=== PATIENT | female | born 1995 | race Two or more races ===

== ENCOUNTER 2019-12-12 11:33 | Outpatient (CLI) | payer OTHER ==
--- NOTE | 2019-12-12 12:15 | SLEEP CARE CONSULTATION ---
Information from patient questionnaire entered by Latesha Haynes. I have reviewed and concur with the information entered by Latesha Haynes. This document represents the service I personally performed and the decisions made by me, Noble Ryder MD, [facility]. History of Present Illness Service Date and Time: 12/12/2019 1133 Reason for Visit: New patient Chief Complaint: reports: Snoring, Observed pauses in breathing, Fatigue, Frequent awakenings at night, Other (sleep apnea) Duration of Symptoms: my whole life Usual bedtime: 10-11 pm Time it takes to fall asleep: i fall asleep quick Snores at night: Yes Observed to quit breathing while asleep: Yes Sleeps alone due to snoring: Yes Number of times waking at night: 2-5 Reasons for waking at night: reports: Other (none, i just wake up) Toss, Turn, or Twitch while sleeping: Yes Recalls having dreams: Yes Usually gets out of bed at: 8 am Feels refreshed in the morning: No Morning headache: No Sleepy or fatigued during the day: Yes Ever fallen asleep while driving: No Takes day naps: Yes Dreams during day naps: Yes Prior sleep studies: No Additional HPI information: Ms. Castillo is planning to have a bariatric surgery and is here to have a sleep study. She does snore loudly to the point that her has to sleep in a separate bedroom. He also has seen her quit breathing at night. She has woken up because of her own snore. She wakes up 4 times a night on the average. During the day she feels sleepy and tired. Her ENT employer in [place] looked at her throat and said it was narrow and that she probably has REGINE. She has an aunt and a cousin who use CPAPs. 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 Patient is and lives in [place]. Have you smoked in the past 12 months: No Cigarettes per day (20/pack): 5 Years of smokin Quit date: 2016 Smoking Pack Years: 1.0 Alcohol use: Yes Alcohol amount and frequency: a couple drinks socially Caffeine use: Yes Caffeine amount and frequency: maybe tea or coffee sometimes Family History Family history of sleep disordered breathing: Yes Family Hx Sleep Apnea: Other: Sleep apnea - Treated (aunt, cousin) Allergies and Home Medications Drug allergies reviewed: Yes Home medication list reviewed: Yes (duloxetine) Review of Systems Weight gain over past 5 years: 60 Weight loss over past 5 years: 40 Cardiovascular: reports: palpitations Respiratory: denies: shortness of breath, wheeze, sputum production, chronic cough, other Gastrointestinal: reports: heartburn Urinary: denies: incontinence, frequency, urgency, impotence, other Neurological: reports: headaches, gait or balance problems Psychiatric: reports: anxiety Ear/Nose/Throat: reports: wisdom teeth removed Endocrine: reports: thyroid disease, sluggishness, too hot or cold, excessive thirst, increased appetite Musculoskeletal: reports: neck pain, other (TMJ) Immunologic: denies: sneezing, rash, itching, allergies to food or environment, other Physical Exam Vital signs obtained and entered by: Exam is deferred to comply with COVID-19 precautions. Impression and Plan IMPRESSION: 1. Obstructive Sleep Apnea-Hypopnea Syndrome, as suggested by history of loud and irregular snoring, observed cessation of breath while asleep, frequent awakenings during the night, unrefreshed sleep, cognitive impairment, and daytime hypersomnolence. Narrow oropharynx and obesity are common predisposing factors for obstructive sleep apnea-hypopnea syndrome. Pathophysiology of sleep-disordered breathing was discussed. I recommend proceeding to polysomnography to confirm the diagnosis and to assess severity. If she has significant sleep disordered breathing, a manual CPAP titration study will also be performed to find the optimal treatment pressure. I informed the patient of what the sleep studies involve and after some discussion, she agreed to proceed. Plan: 1. Schedule an in-lab polysomnography + manual CPAP titration study. 2. Avoid long distance driving or when feeling sleepy. 3. Avoid alcohol, sedative and muscle relaxant around bedtime. 4. Attempt to lose weight. 5. Return in 1 to 2 weeks after the study to discuss results and initiate therapy. Visit Type: In Office Time Spent with Patient (minutes): 15 Provider Statement: I spent 100% of the Face to Face Visit with the patient with greater than 50% spent counseling the patient and coordination of care.
== END 2019-12-12 11:34 | disposition home or self-care (01) ==
LOC: SC 11:33
PROVIDERS: ATTEND Internal Medicine Pulmonary Disease
DX: R06.83 Snoring (principal); R06.81 Apnea, not elsewhere classified; G47.10 Hypersomnia, unspecified; G47.8 Other sleep disorders; E66.9 Obesity, unspecified
CPT/HCPCS: 99203; 99212

== ENCOUNTER 2020-01-05 20:28 | Outpatient (CLI) | payer OTHER | END 2020-01-05 20:29 | disposition home or self-care (01) | LOC: SC 20:28 | PROVIDERS: ATTEND Internal Medicine Pulmonary Disease | DX: I47.1 Supraventricular tachycardia (principal); R06.83 Snoring; G47.10 Hypersomnia, unspecified; R06.81 Apnea, not elsewhere classified; E66.9 Obesity, unspecified | CPT/HCPCS: 95810 ==

== ENCOUNTER 2020-02-02 09:08 | Outpatient (CLI) | payer OTHER ==
--- NOTE | 2020-02-02 09:52 | SLEEP CARE CONSULTATION ---
Information from patient questionnaire entered by Latesha Haynes. I have reviewed and concur with the information entered by Latesha Haynes. This document represents the service I personally performed and the decisions made by , Olga Meza ARNP. History of Present Illness Service Date and Time: 02/02/2020907 Initial [place] Sleepiness Scale score: 15 (in 2019) Additional HPI information: SERGIO GONZALEZ returns for follow up and results of the recently performed polysomnography. Patient is trying to gain clearance for bariatric surgery and was thus sent here by her PCP to evaluate her for REGINE due to snoring, witness apnea, excessive daytime sleepiness and obesity. The patient was informed of the following findings: Patient does not have significant sleep disordered breathing but was found to have an occasional premature atrial contraction and had an 8-beat run of supraventricular tachycardia. She has already touched base with her PCP who has referred her to [facility] cardiology for a 30 day holter study. I explained the pathophysiology behind obstructive sleep apnea. Patient does not have sleep apnea and was advised how weight gain could increase the risk of developing sleep apnea in the future. I encouraged the patient to lose weight and she is seeking to obtain bariatric surgery to help her lose weight. Patient has light to moderate snoring. Snoring can be reduced by weight loss. Weight loss is best achieved with diet consult. Patient instructed to contact PCP for referral. Snoring can also be treated with an oral appliance from a dentist. Advised to check insurance coverage. In addition, an ENT evaluation can be do to see if other treatment is indicated. Patient counseled not drink alcohol less than 4 hours before bedtime as it can increase snoring and apnea. Patient was cautioned about risks of drowsy driving until sleepiness symptoms resolve. Sleep Study - Results Type of Sleep Study: Polysomnography Polysomnography/Home Sleep Study results: IMPRESSION: The quality of the study is good. The patient had normal sleep efficiency. The sleep architecture was normal as well. Respiratory monitoring showed no significant sleep disordered breathing (AHI = 2.1) or hypoxia (shorty oxygen saturation of 90%). The few respiratory events occurred mainly during supine REM sleep (supine AHI = 3.7; non-supine = 0.00). Snore was light to moderate in intensity. There was no significant periodic leg movement of sleep. Cardiac rhythm was normal sinus rhythm without significant arrhythmia with occasional premature atrial contractions and an 8-beat run of supraventricular tachycardia. No abnormal behavior (parasomnia) observed during the night. CONCLUSIONS and RECOMMENDATIONS: 1. Supraventricular tachycardia (ICD-10 I47.1). Recommend further cardiac monitoring and treatment as appropriate. Allergies and Home Medications Drug allergies reviewed: Yes (Sulfa) Home medication list reviewed: Yes (no medications) Review of Systems Review of systems same as previous: Yes (no changes) Physical Exam Heart Rate: 66 O2 Saturation: 99 Height: 5 ft 7 in Weight: 218 lb 9.6 oz Body Mass Index: 34.2 BMI Classification: Obese Impression and Plan 1. Primary snore. Snoring but no significant sleep disordered breathing. Patient advised that often weight loss will reduce snoring as well as apnea risk. An oral appliance can also be used for snoring. This would require a dental consultation. Patient cautioned not to use other online appliances as can cause bite issues. A list of accredited dentists in area and one local dentist who makes oral appliances given. Patient is advised to check if insurance will cover. An ENT consult can also be helpful to determine if any other treatment is an option. 2. Supraventricular tachycardia. Patient had an 8-beat run of supraventricular tachycardia during the PST. She has been referred by her PCP for a 30 day holter study of her heart rhythm. She was advised to continue with cardiology referral and study to have this evaluated. * Continue follow up with cardiology and the holter monitoring test * Continue efforts to lose weight * Avoid alcohol consumption near bedtime * The patient is cautioned about driving until sleepiness is completely resolved. * Return as needed for follow up with worsening of sleep symptoms. Visit Type: In Office Time Spent with Patient (minutes): 20 Provider Statement: I spent 100% of the Face to Face Visit with the patient with greater than 50% spent counseling the patient and coordination of care.
== END 2020-02-02 09:09 | disposition home or self-care (01) ==
LOC: SC 09:08
PROVIDERS: ATTEND Nurse Practitioner Family
DX: R06.83 Snoring (principal); I47.1 Supraventricular tachycardia; E66.9 Obesity, unspecified; Z68.34 Body mass index [BMI] 34.0-34.9, adult
CPT/HCPCS: 99212; 99213

== ENCOUNTER 2020-09-16 11:56 | Outpatient (CLI) | payer OTHER ==
[2020-09-16 12:58] VITALS: BP 118/87
[2020-09-16] MEDS ORDERED: RHO(D) IMMUNE GLOBULIN 300 MCG SYRINGE IM ONE (13:14)
[2020-09-16 13:33] LABS: BASOPHILS % (AUTO) 0.2 %; EOSINOPHILS # (AUTO) 0.1 10^3/uL (0.0-0.7); EOSINOPHILS % (AUTO) 0.6 %; HGB - HEMOGLOBIN 11.3 g/dL (12.0-16.0); LYMPHOCYTES # (AUTO) 1.5 10^3/uL (1.5-3.5); LYMPHOCYTES % (AUTO) 14.6 %; MEAN CORPUSCULAR HEMOGLOBIN 29.7 pg (27.0-31.0); MEAN CORPUSCULAR HGB CONC 33.2 g/dL (32.0-36.0); MEAN CORPUSCULAR VOLUME 89.5 fL (81.0-99.0); MEAN PLATELET VOLUME 9.1 fL (7.9-10.8); MONOCYTES # (AUTO) 0.6 10^3/uL (0.0-1.0); MONOCYTES % (AUTO) 6.1 %; NEUTROPHILS # (AUTO) 8.1 10^3/uL (1.5-6.6); NEUTROPHILS % (AUTO) 77.5 %; PLT - PLATELET COUNT 326 10^3/uL (130-450); RED CELL DISTRIBUTION WIDTH 13.9 % (12.0-15.0); WHITE BLOOD COUNT 10.4 x10^3/uL (4.8-10.8)
[2020-09-16] MEDS ORDERED: LACTATED RINGERS 1,000 ML IV ONE ×2 (14:56→15:00)
[2020-09-16 19:34] LABS: ESTIMATED AVERAGE GLUCOSE 94 mg/dL (70-100); HEMOGLOBIN A1c% 4.9 % (4.27-6.07)
--- NOTE | 2020-09-18 16:51 | PROVIDER PROGRESS NOTE ---
- HPI Chief Complaint: Other Current : Patient is a 24 yo at 32w3d ega here with abdominal pain and tachycardia. Patient has had scant care this . She believes she has been seen twice to date. Pans to transfer from [facility]. She was recently seen at [facility] but did not like the provider and did not follow-up. [facility] and reported that she had been having emesis, diarrhea, and cramping all weekend and now is tachycardic. She was told to present to triage for evaluation. Upon presentation, she reports she has not had any episodes of diarrhea or emesis this am. She remains tachycardic. No SOB, CP, or dizziness. Endorses FM. She is Rh negative and has not had Rhogam. She was under the impression that it was only needed for the first . She thinks her husbadn is O negative and her children are as well but there is no documentation readily available. She has not yet completed her glucola. Outside records are not available. PMH: none PSH:removal of keratinizing cyst OBHX: x2 PNL: O neg, Rub imm Hep C Ab neg, HepBsAg neg, RPR neg, HIV neg IS wnl CF carrier neg Current EDU 11/08/20 Gestation 32 Weeks and 3 Days 3 Para 2 Vital Signs Temperature 97.2 F L 09/16/20 12:10 Heart Rate 115 H 09/16/20 12:10 Respiratory Rate 18 09/16/20 12:10 Blood Pressure 118/87 H 09/16/20 12:10 O2 Saturation 98 09/16/20 12:10 Temperature 97.2 F L 09/16/20 12:10 Heart Rate 115 H 09/16/20 12:10 Respiratory Rate 18 09/16/20 12:10 Blood Pressure 118/87 H 09/16/20 12:10 O2 Saturation 98 09/16/20 12:10 - Exam GEN: NAD HEENT: NCAT CV; tachycardia RESP: CTAB, normal effort ABD: gravid, S&NT/ND EXT: WWP NEURO: A&O, normal gait and coordination PSYCH: bright and reactive affect EFM 135 mod nikolas 15x15 accles no decels TOCO: quiet - Procedures OB Procedure Performed: NST Diagnosis/Indication for NST: Other (abdominal pain) NST Procedure: EFM 135 mod nikolas 15x15 accles no decels TOCO: quiet Service Date of procedure: 09/16/20 - Plan Plan: 24 yo at 32+3 wga here for abdominal cramping, diarrhea, emesis, tachycardia. No longer having GI symptoms No contractions on monitor FWB: Cat I tracing TACHYCARDIA: TSH, glucose, CBC drawn -Given 1L fluid bolus, given recency of GI symptoms, and tachycardia resolved PNL: scant care -Had extensive discussion regarding Rh isoalloimmunization -Ab screen drawn and was negative -Rhogam given -Glucola drawn, wnl Patient symptoms resolved tachycardia resolved with IV fluids Patient will follow up in clinic CBC showed anemia; rx for iron and vit C sent to [facility] pharmacy Patient was examined and mitochondrial disorders counselor was given face to face by provider DX: IUP at 32+3 Abdominal cramping GI distress Tachycardia Rh negative in
== END 2020-09-16 16:20 | disposition home or self-care (01) ==
LOC: WFO 11:56 → FBP 12:01 → WFO 16:20
PROVIDERS: ATTEND Obstetrics & Gynecology
DX: O99.891 Other specified diseases and conditions complicating pregnancy (principal); R00.0 Tachycardia, unspecified; R10.9 Unspecified abdominal pain; R19.7 Diarrhea, unspecified; O21.2 Late vomiting of pregnancy; O26.893 Other specified pregnancy related conditions, third trimester; Z67.41 Type O blood, Rh negative; O09.33 Supervision of pregnancy with insufficient antenatal care, third trimester; Z3A.32 32 weeks gestation of pregnancy
CPT/HCPCS: 36415; 82950; 83036; 84443; 85025; 86850; 96360; 96372; 99213; J7120

== ENCOUNTER 2020-10-17 08:00 | Outpatient (CLI) | payer OTHER | END 2020-10-17 23:59 | disposition home or self-care (01) | LOC: LAB.R 08:00 | PROVIDERS: ATTEND Obstetrics & Gynecology | DX: Z36.85 Encounter for antenatal screening for Streptococcus B (principal) | CPT/HCPCS: 87797 ==

== ENCOUNTER 2020-11-03 23:52 | Outpatient (CLI) | payer OTHER ==
[2020-11-04 00:22] VITALS: BP 117/73
--- NOTE | 2020-11-04 07:29 | PROCEDURE REPORT ---
- HPI Diagnosis/Indication for NST: Other (labor check--contractions at term) Current EDU 11/08/20 Gestation 39 Weeks and 3 Days 3 Para 2 Vital Signs Temperature 98.1 F 11/04/20 00:10 Heart Rate 81 11/04/20 00:10 Respiratory Rate 16 11/04/20 00:10 Blood Pressure 117/73 11/04/20 00:10 O2 Saturation 100 11/04/20 00:10 Temperature 98.1 F 11/04/20 00:10 Heart Rate 81 11/04/20 00:10 Respiratory Rate 16 11/04/20 00:10 Blood Pressure 117/73 11/04/20 00:10 O2 Saturation 100 11/04/20 00:10 - NST Procedure NST Procedure Start Date 11/04/20 Start Time 00:03 Stop Time 00:26 Vibroacoustic Stimulation Used No Patient States Movement Yes - Results and Plan Findings/Impression: Baseline: BPM 135 Variability: Moderate Accelerations: Present Decelerations: Absent Trends in FHR over time: no changes [place] contractions in 10 minutes: 3 Impression: reactive Category 1 NST Labor check, unchange SVE at 1.5cm
== END 2020-11-04 01:20 | disposition home or self-care (01) ==
LOC: WFO 23:52 → FBP 23:53 → WFO 11-04 01:20
PROVIDERS: ATTEND Obstetrics & Gynecology
DX: Z34.83 Encounter for supervision of other normal pregnancy, third trimester (principal); Z3A.39 39 weeks gestation of pregnancy
CPT/HCPCS: 59025; 99211; 99213

== ENCOUNTER 2020-11-04 04:01 | Inpatient (IN) | payer OTHER ==
[2020-11-04] MEDS ORDERED: TRANEXAMIC ACID IN NACL 1,000 MG/100 ML BAG IV PRN (04:24)
[2020-11-04] MEDS ORDERED: SODIUM CHLORIDE FLUSH 0.9% 10 ML SYRINGE IVP PRN (04:24)
[2020-11-04] MEDS ORDERED: miSOPROStoL 200 MCG TABLET BC PRN (04:24)
[2020-11-04] MEDS ORDERED: fentaNYL 100 MCG/2 ML VIAL IVP PRN (04:24)
[2020-11-04] MEDS ORDERED: OXYTOCIN 10 UNIT/ML VIAL IM PRN (04:24)
[2020-11-04] MEDS ORDERED: CARBOPROST TROMETHAMINE 250 MCG/ML AMP IM PRN (04:24)
[2020-11-04] MEDS ORDERED: LIDOCAINE-MPF 1% 30 ML VIAL ID PRN (04:24)
[2020-11-04] MEDS ORDERED: ONDANSETRON 4 MG/2 ML VIAL IVP PRN (04:24)
[2020-11-04] MEDS ORDERED: OXYTOCIN/SODIUM CHLORIDE 500 ML IV PRN (04:24)
[2020-11-04] MEDS ORDERED: METHYLERGONOVINE 0.2 MG/ML VIAL IM PRN (04:24)
[2020-11-04 05:43] LABS: BASOPHILS % (AUTO) 0.2 %; EOSINOPHILS # (AUTO) 0.1 10^3/uL (0.0-0.7); EOSINOPHILS % (AUTO) 1.1 %; HCT - HEMATOCRIT 31.4 % (37.0-47.0); HGB - HEMOGLOBIN 10.7 g/dL (12.0-16.0); LYMPHOCYTES # (AUTO) 1.7 10^3/uL (1.5-3.5); LYMPHOCYTES % (AUTO) 16.3 %; MEAN CORPUSCULAR HEMOGLOBIN 29.4 pg (27.0-31.0); MEAN CORPUSCULAR HGB CONC 34.1 g/dL (32.0-36.0); MEAN CORPUSCULAR VOLUME 86.3 fL (81.0-99.0); MEAN PLATELET VOLUME 9.8 fL (7.9-10.8); MONOCYTES # (AUTO) 0.9 10^3/uL (0.0-1.0); MONOCYTES % (AUTO) 8.1 %; NEUTROPHILS # (AUTO) 7.8 10^3/uL (1.5-6.6); NEUTROPHILS % (AUTO) 73.5 %; PLT - PLATELET COUNT 319 10^3/uL (130-450); RED BLOOD COUNT 3.64 10^6/uL (4.20-5.40); RED CELL DISTRIBUTION WIDTH 13.7 % (12.0-15.0); WHITE BLOOD COUNT 10.6 x10^3/uL (4.8-10.8)
--- NOTE | 2020-11-04 07:25 | HISTORY & PHYSICAL EXAMINATION ---
History of Present Illness - History of Present Illness HPI Comment/Other: CC: broken bag of water HPI: Srom clear, voluminous at 03:30. Was having painful contractions last night after taking pato oil, came in for a labor check around midnight, was 1.5cm dilated at that time. No SVE change here and so she was sent home. No VB. ROS: no fevers PMH: hx of peptic ulcer. overweight. PSH: neg Allergies: sulfa --> hives Meds: PNV which she forgets often. Ulman oil. SH: no t/e/d OB: . 9#15oz babies x2, didn't have diabetes with either. Datin/21 by LMP c/w 23w US per record Anatomy: reported as normal on record but results not visible. Genetics: normal integrated Labs: 1h 117, GBS neg. No hx of HSV. O neg, Ab neg. RI, . Vax: s/p Tdap, s/p Rhogam O: AVSS Sleeping comfortably, NAD EFW alejandra 9+# Hct 31 Cat 1 NST [place] neg A/P: 24yo at 39w3d by LMP c/w 23w US (patient also had integrated screening which further supports gestational age) with SROM clear at term, SROM 4h ago. Had UC last night and came in for labor check and so I was anticipating that the contractions would resume after SROM but they did not. Will start pitocin now. --Macrosomia by alejandra, no recent growth US as the patient has said that regardless of the size she would not consider a primary for projected size to reduce risk of morbidity or mortality...as she has already successfully birthed to macrosomic babies. --Anemia: starting Hct 31, has not been taking her PNV faithfully --Fetus: normal anatomy and genetic testing. Vertex with category 1 tracing --Labor: GBS neg, augment with pitocin, anticipate , pt wants to proceed unm edicated. Increased risk for PPH due to macrosomia. --: will need rhogam eval. RI, , s/p Tdap. No hx of mood disorders. Meds/Allgy - Allergies Allergies/Adverse Reactions: Allergies Allergy/AdvReac Type Severity Reaction Status Date / Time Sulfa (Sulfonamide Allergy Hives Verified 09/16/20 14:34 Antibiotics) Exam - Vital Signs Vital Signs: Vital Signs x48h Temp Pulse Resp BP 11/04/20 04:29 98.1 F 88 16 116/78 Conclusion/Plan - Lab Results Fish Bones: 11/04/20 05:33
--- NOTE | 2020-11-04 08:28 | PROVIDER PROGRESS NOTE ---
Subjective - Prog Note Date Prog Note Date: 11/04/20 Prog Note Time: 08:26 - Subjective Subjective: 24 yo at 39+3 here with SROM Not feeling contractions. Starting IV SVE /-3/posterior Hx of fast labors Hx of LGA infants LABOR: augment with pitocin FWB: Cat I tracing, GBS neg, suspected macrosomia Rh neg PAIN: Wants to avoid epidural and fentanyl OK with nitrous MOD: Anticipate Objective - Vital Signs/Intake & Output Vital Signs: Vital Signs x48h Temp Pulse Resp BP 11/04/20 04:29 98.1 F 88 16 116/78 - Lab Results Fish Bones: 11/04/20 05:33 Other Labs: Lab Results x24hrs 11/04/20 Range/Units 05:33 WBC 10.6 (4.8-10.8) x10^3/uL RBC 3.64 L (4.20-5.40) 10^6/uL Hgb 10.7 L (12.0-16.0) g/dL Hct 31.4 L (37.0-47.0) % MCV 86.3 (81.0-99.0) fL MCH 29.4 (27.0-31.0) pg MCHC 34.1 (32.0-36.0) g/dL RDW 13.7 (12.0-15.0) % Plt Count 319 (130-450) 10^3/uL MPV 9.8 (7.9-10.8) fL Neut # (Auto) 7.8 H (1.5-6.6) 10^3/uL Lymph # (Auto) 1.7 (1.5-3.5) 10^3/uL [place] # (Auto) 0.9 (0.0-1.0) 10^3/uL Eos # (Auto) 0.1 (0.0-0.7) 10^3/uL Baso # (Auto) 0.0 (0.0-0.1) 10^3/uL Absolute Nucleated RBC 0.00 x10^3/uL Nucleated RBC % 0.0 /100WBC
[2020-11-04] MEDS ORDERED: SODIUM CHLORIDE FLUSH 0.9% 10 ML SYRINGE IVP SCH (09:00)
[2020-11-04] MEDS: LACTATED RINGERS 1,000 ML IV SCH ×2 (09:13→15:35)
[2020-11-04] MEDS: OXYTOCIN/SODIUM CHLORIDE 500 ML IV SCH ×2 (09:33→16:05)
[2020-11-04] MEDS ORDERED: CALCIUM CARBONATE CHEW 500 MG TABLET PO SCH (14:00)
[2020-11-04] MEDS ORDERED: DOCUSATE SODIUM 100 MG CAPSULE PO PRN (15:46)
[2020-11-04] MEDS ORDERED: SIMETHICONE CHEW 80 MG TABLET PO PRN (15:46)
[2020-11-04] MEDS ORDERED: ONDANSETRON ODT 4 MG TABLET TL PRN (15:46)
--- NOTE | 2020-11-04 15:49 | DELIVERY NOTE ---
Delivery Note - Labor Labor: positive: Augmented by oxytocin - Delivery Method Delivery Method: positive: Spontaneous vaginal delivery - Presentation Presentation: positive: Vertex, ROP - right occiput posterior - Nuchal Cord Nuchal Cord: positive: Present, Reduced - Amniotic Fluid Description Amniotic Fluid Description: positive: Clear - Episiotomy Type Episiotomy Type: positive: None - Laceration Laceration: positive: None - [place] : positive: Placed in direct skin contact with mother, Stimulated, Warmed, [place] used [place] sex: positive: Male - Cord Cord: positive: 3 vessels - Placenta Placenta: positive: Intact, Spontaneous - Estimated Blood Loss Estimated Blood Loss (in cc): 150 - Post Delivery Events Post Delivery Events: positive: No post delivery events - Delivery Comments (Free Text/Narrative) Delivery Comments (Free Text/Narrative): STAGE I: Patient is a 24 yo at 39+3 wga who presented with SROM, voluminous at 03:30. Was having painful contractions last night after taking castor oil, came in for a labor check around midnight, was 1.5cm dilated at that time. No SVE change here and so she was sent home. Presented at 6:40 am s/p SROM. Initial SVE was 4/70/-2/posterior/med. Did not regular contractions and was augmented with pitocin. Max dose of pitocin 6 mU/min. No epidural. Some nitrous oxide for pain management. GBS negative. She was complete at 15:24. Cat I monitoring throughout Stage I labor. STAGE II: Patient pushed well for 5 minutes to deliver a viable male infant from vertex, ROP presentation. Shoulders delivered easily with left arm anterior. Nuchal cord x1, reduced over infant head. Delivered to maternal chest. Cord was clamped x2 and cut after pulsations had ceased. Apgars 8/9 with weight pending. STAGE III: Placenta delivered spontaneously at 15:37. It was examined and found to be complete. Perineum was examined and was without laceration. EBL 150 cc. Procedure was well tolerated and without complication.
[2020-11-04] MEDS ORDERED: LACTATED RINGERS 1,000 ML IV SCH (16:00)
[2020-11-04] MEDS: IBUPROFEN 600 MG TABLET PO PRN ×2 (16:12→21:54)
[2020-11-04] MEDS: ACETAMINOPHEN 500 MG TABLET PO PRN (16:12)
[2020-11-05] MEDS: ACETAMINOPHEN 500 MG TABLET PO PRN ×3 (02:36→17:11)
[2020-11-05] MEDS: IBUPROFEN 600 MG TABLET PO PRN ×3 (04:38→17:11)
--- NOTE | 2020-11-05 08:58 | PROVIDER PROGRESS NOTE ---
Subjective - Prog Note Date Prog Note Date: 11/05/20 Prog Note Time: 08:56 - Subjective Subjective: Patient is doing well. Up and out of bed. Tolerating po. BF going well. Strong after pains this am, needing a single dose of oxycodone. Bleeding is wnl. [place] BTL Objective - Vital Signs/Intake & Output Reviewed Vital Signs: Yes Vital Signs: Vital Signs x48h Temp Pulse Resp BP Pulse Ox 11/05/20 07:30 97.8 F 69 18 117/67 97 11/05/20 04:45 98.2 F 68 16 110/58 L 99 11/05/20 02:00 97.9 F 54 L 16 114/60 100 Intake & Output: Intake & Output 11/02/20 11/03/20 11/04/20 11/05/20 23:59 23:59 23:59 23:59 Intake Total 955 Output Total 375 Balance 580 - Objective General Appearance: positive: No acute distress Respiratory: positive: No respiratory distress Cardiovascular: positive: Other (RR) Peripheral Pulses: 2+ Radial (R), 2+ Radial (L), 2+ Dorsalis pedis (R), 2+ Dorsalis pedis (L) Abdomen: positive: Non-tender, Other (FF below umbi) Extremities: positive: Non-tender, No pedal edema Neurologic/Psychiatric: positive: Oriented x3 - Lab Results Fish Bones: 11/04/20 05:33 Other Labs: Lab Results x24hrs 11/04/20 Range/Units 08:15 Blood Type O NEGATIVE Antibody Screen POSITIVE Antibody Identification See Comments SHEYLA, IgG Specific NEGATIVE SHEYLA, Polyspecific NEGATIVE SHEYLA, C3d Specific Not Reportable Assessment/Plan - Problem List (1) Vaginal delivery Impression: Patient is doing well Meeting goals for discharge O neg; baby also Rh negative Desires DC home at 24 hours pp Routine DC instructions given
[2020-11-05] MEDS ORDERED: oxyCODONE 5 MG TABLET PO ONE (09:00)
--- NOTE | 2020-11-05 09:03 | Discharge Plan ---
Discharge Plan Problem Reviewed?: Yes Disposition: Home, Self Care Condition: Good Prescriptions: Acetaminophen [Acetaminophen Extra Strength] 1,000 mg PO Q8H PRN #60 tablet PRN Reason: Pain Docusate Sodium 100Mg Capsule [Colace 100Mg Capsule] 100 - 200 mg PO BID PRN #60 cap PRN Reason: Constipation Ibuprofen [Motrin] 600 mg PO Q6H PRN #60 tab PRN Reason: Pain oxyCODONE [Roxicodone] 2.5 - 5 mg PO Q4H PRN #2 tablet PRN Reason: Severe Pain Activity Restrictions: Additional Comments (Nothing in the vagina for 6 weeks: No intercourse, tampons, douching Call for: -Fever greater than 100.5 - Pain that does not improve with pain medication -Heavy bleeding in which you are soaking a pad an hour for 2 hours in a row) Shower Restrictions: No (No tub baths or hot tubs for 4 weeks) Driving Restrictions: No (No driving while on narcotics) No Smoking: If you smoke, Please STOP! Call for help. Follow-up with: DI RAHMAN ARNP [Primary Care Provider] - Micha Mcmillan MD [Provider Admit Priv/Credential] - Arianna Kennedy MD [Provider Admit Priv/Credential] -
--- NOTE | 2020-11-05 09:06 | DISCHARGE SUMMARY ---
"Discharge Summary Admit Date: 11/04/20 Discharge Date: 11/05/20 Discharging Provider: Brent Code Status: Attempt Resuscitation Condition at Discharge: Good Discharge Disposition: 01 Home, Self Care - DIAGNOSES Admission Diagnoses: IUP at 39+5 wga Spontaneous rupture of membranes Suspected macrosomia Discharge Diagnoses with Status of Each Condition: Same and delivery of term gestation - HPI History of Present Illness: 24yo at 39w3d by LMP c/w 23w US (patient also had integrated screening which further supports gestational age) with SROM clear at term, SROM 4h prior to presentation. No contractions. Pitocin for augmentation. --Macrosomia by alejandra, no recent growth US as the patient has said that regardless of the size she would not consider a primary for projected size to reduce risk of morbidity or mortality as she has already successfully birthed to macrosomic babies. --Anemia: Hct 31 --Fetus: normal anatomy and genetic testing. Vertex with category 1 tracing --Labor: GBS neg, augment with pitocin, anticipate , pt wants to proceed unmedicated. Increased risk for PPH due to macrosomia. --: will need rhogam eval. RI, , s/p Tdap. No hx of mood disorders. - CONSULTS | PROCEDURES Procedures: Spontaenous vaginal delivery of vigorous male . Apgars 8/9 and weight 3810g - HOSPITAL COURSE Hospital Course: STAGE I: Patient is a 24 yo at 39+3 wga who presented with SROM, voluminous at 03:30. Was having painful contractions last night after taking castor oil, came in for a labor check around midnight, was 1.5cm dilated at that time. No SVE change here and so she was sent home. Presented at 6:40 am s/p SROM. Initial SVE was 4/70/-2/posterior/med. Did not regular contractions and was augmented with pitocin. Max dose of pitocin 6 mU/min. No epidural. Some nitrous oxide for pain management. GBS negative. She was complete at 15:24. Cat I monitoring throughout Stage I labor. STAGE II: Patient pushed well for 5 minutes to deliver a viable male infant from vertex, ROP presentation. Shoulders delivered easily with left arm anterior. Nuchal cord x1, reduced over infant head. Delivered to maternal chest. Cord was clamped x2 and cut after pulsations had ceased. Apgars 8/9 with weight pending. STAGE III: Placenta delivered spontaneously at 15:37. It was examined and found to be complete. Perineum was examined and was without laceration. EBL 150 cc. Procedure was well tolerated and without complication. course was uncomplicated. Routine discharge instructions given Patient was Rh negative; also Rh negative. - ALLERGIES Allergies/Adverse Reactions: Allergies Allergy/AdvReac Type Severity Reaction Status Date / Time Sulfa (Sulfonamide Allergy Hives Verified 09/16/20 14:34 Antibiotics) - MEDICATIONS Home Medications: Ambulatory Orders Medication Instructions Recorded Confirmed Acetaminophen [Acetaminophen Extra 1,000 mg PO Q8H PRN #60 tablet 11/05/20 Strength] Docusate Sodium 100Mg Capsule 100 - 200 mg PO BID PRN #60 cap 11/05/20 [Colace 100Mg Capsule] Ibuprofen [Motrin] 600 mg PO Q6H PRN #60 tab 11/05/20 oxyCODONE [Roxicodone] 2.5 - 5 mg PO Q4H PRN #2 tablet 11/05/20 - LABS Result Diagrams: 11/04/20 05:33 - FOLLOW UP Follow Up: [address] Mcmillan or Dr. Kennedy - TIME SPENT Time Spent in Discharge (Minutes): 30"
[2020-11-05 13:57] VITALS: BP 97/67
--- NOTE | 2020-11-05 18:51 | Labor Flowsheet ---
Labor Flowsheet Datetime Report Generated by CPN: 11/05/2020 18:51 Datetime: 11/05/2020 13:56 VITAL SIGNS NBP Sys/Christine/Mean (mmHg): 97 : 67 : 73 Pulse: 68 Datetime: 11/04/2020 18:40 SpO2 (%): 98 Datetime: 11/04/2020 17:10 Temperature (C): 36.6 Temperature Route: Oral Datetime: 11/04/2020 16:59 Membranes Ruptured Date/Time: 11/04/2020 03:30 Datetime: 11/04/2020 15:54 Respirations: 20 Datetime: 11/04/2020 15:36 Comments: placenta out Datetime: 11/04/2020 15:29 Stage of : Recovery Datetime: 11/04/2020 15:24 STAGE 2 Pushing: Urge to Push; Involuntary Pushing Pushing Position: Pushing with Contractions; Pushing Lithotomy Datetime: 11/04/2020 15:18 COMMUNICATION Communication: Provider at Bedside Communication Comments: Dr. Og Sorley here Datetime: 11/04/2020 15:15 UTERINE ACTIVITY Monitor Mode: External Frequency (min): 2-3 Quality: Strong Duration (sec): 60-120 Pattern: Normal: <= 5 Contractions in 10 Minutes Resting Tone (Palpate): Relaxed ASSESSMENT A Monitor Mode: Telemetry FHR Baseline Rate : 125 Variability: Moderate 6-25 bpm Accelerations: 15X15 Decelerations: Variable Category: Category II Patient Care Comments: pushing involuntarily Datetime: 11/04/2020 15:09 LaborFlag: Labor Datetime: 11/04/2020 15:00 FHR Baseline Changes: No Baseline Change PAIN Pain Scale: 10 Pain Coping: Breathing Through Contractions Oxygen Method: Room Air Datetime: 11/04/2020 14:58 Notification Reason: Labor Status Datetime: 11/04/2020 14:53 VAGINAL EXAM Dilatation (cm): 7.0 Effacement (%): 70 Station: -1 Exam by: S. Guilherme Cervix, Position: Midposition Datetime: 11/04/2020 14:45 Monitor Interventions for FHR: Ultrasound Adjusted Datetime: 11/04/2020 14:15 Monitor Interventions for UA: [place] Adjusted Contraction Comments: unable to assess ctx pattern, wctm and adjusted as needed Datetime: 11/04/2020 14:00 I/O Interventions: Up to BR Datetime: 11/04/2020 13:30 MEDICATIONS Pitocin (milliunits): Increased to @ 6 Medication Comments: nitrous Datetime: 11/04/2020 13:16 Patient Position/Activity: High Fowlers Datetime: 11/04/2020 12:11 Pain Assessment Comments: pt feeling more rectal pressure, would like to be checked Vaginal Exam Comments: cervix hard to reach, pt uncomfortable. plan of care not chaning. Datetime: 11/04/2020 11:30 Actions for Decelerations: Other Datetime: 11/04/2020 08:14 PATIENT CARE IV/Blood Work: IV Started Datetime: 11/04/2020 06:52 Provider Reviewed Strip: Yes Provider Notified (Name): Sarah here to see pt Datetime: 11/04/2020 06:14 Pain Presence: None/Denies Datetime: 11/04/2020 05:17 MATERNAL ASSESSMENT Level of Consciousness: Alert DTR's/Clonus: DTRs 2+ Headache: Denies Breath Sounds, Left: Clear and Equal Breath Sounds, Right: Clear and Equal Nausea/Vomiting: Denies RUQ Epigastric Pain: Denies
== END 2020-11-05 17:15 | disposition home or self-care (01) | DRG 807 ==
LOC: WFO 04:01 → FBP 04:03 → WFO 04:23 → FBP 04:24
PROVIDERS: ADMIT Obstetrics & Gynecology; ATTEND Obstetrics & Gynecology
PROC: 10E0XZZ Delivery of Products of Conception, External Approach (ICD-10-PCS; principal; 2020-11-04)
DX: O36.63X0 Maternal care for excessive fetal growth, third trimester, not applicable or unspecified (principal); Z37.0 Single live birth; O69.81X0 Labor and delivery complicated by cord around neck, without compression, not applicable or unspecified; Z3A.39 39 weeks gestation of pregnancy
CPT/HCPCS: 36415; 85025; 86850; 86870; 86880; 86900; 86901; A9270; J7120

== ENCOUNTER 2020-11-10 15:26 | Emergency (ER) | payer OTHER, MEDICAID ==
--- NOTE | 2020-11-10 15:53 | ED Physician Documentation ---
PD HPI ABD PAIN - Stated complaint Stated Complaint: PELVIC PX - Chief complaint Chief Complaint: Abd Pain - History obtained from History obtained from: Patient - Additional information Additional information: 6 days from a spontaneous vaginal delivery done without epidural complicated by macrosomia but otherwise uncomplicated had pelvic pain throughout which she had not had with prior pregnancies. OB told her it would get better after delivering but instead it has gotten worse. It is pelvic and low back pain that is worse with walking, crossing of her legs. She has a normal amount of [id number] lochia. No fevers. Normal bowel movements without constipation. 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 : None HEENT: None Psych: None Musculoskeletal: None Derm: None - Past Surgical History Past Surgical History: Yes - Present Medications Home Medications: Ambulatory Orders Medication Instructions Recorded Confirmed Acetaminophen [Acetaminophen Extra 1,000 mg PO Q8H PRN #60 tablet 11/05/20 11/10/20 Strength] Docusate Sodium 100Mg Capsule 100 - 200 mg PO BID PRN #60 cap 11/05/20 11/10/20 [Colace 100Mg Capsule] Ibuprofen [Motrin] 600 mg PO Q6H PRN #60 tab 11/05/20 11/10/20 - Allergies Allergies/Adverse Reactions: Allergies Allergy/AdvReac Type Severity Reaction Status Date / Time Sulfa (Sulfonamide Allergy Hives Verified 11/10/20 15:33 Antibiotics) - Social History Does the pt smoke?: No Smoking Status: Former smoker Does the pt drink ETOH?: No Does the pt have substance abuse?: No - Immunizations Immunizations are current?: Yes PD ED PE NORMAL - Vitals Vital signs reviewed: Yes - General General: Alert and oriented X 3, No acute distress - HEENT HEENT: PERRL, EOMI - Cardiac Cardiac: RRR, No murmur - Respiratory Respiratory: No respiratory distress, Clear bilaterally - Abdomen Abdomen: Non tender - Back Back: No CVA TTP, No spinal TTP, Other (Some muscular tenderness of the paralumbar musculature in the back) - Neuro Neuro: Alert and oriented X 3, Normal speech Results - Vitals Vitals: Vital Signs - 24 hr 11/10/20 11/10/20 15:33 17:06 Temperature 36.5 C 36.9 C Heart Rate 77 80 Respiratory 16 18 Rate Blood Pressure 117/100 H 131/82 H O2 Saturation 99 98 Oxygen O2 Source Room air - Labs Labs: Laboratory Tests 11/10/20 11/10/20 11/10/20 16:11 16:11 16:50 WBC 7.4 RBC 3.93 L Hgb 11.3 L Hct 34.4 L MCV 87.5 MCH 28.8 MCHC 32.8 RDW 13.8 Plt Count 392 MPV 9.3 Neut # (Auto) 5.0 Lymph # (Auto) 1.7 [place] # (Auto) 0.5 Eos # (Auto) 0.2 Baso # (Auto) 0.0 Absolute Nucleated RBC 0.00 Nucleated RBC % 0.0 Sodium 139 Potassium 3.9 Chloride 106 Carbon Dioxide 24 Anion Gap 9.0 BUN 16 Creatinine 0.8 Estimated GFR (MDRD) 87 L Glucose 93 Calcium 8.9 Urine Color YELLOW Urine Clarity HAZY Urine pH 6.0 Ur Specific [place] 1.025 Urine Protein NEGATIVE Urine Glucose (UA) NEGATIVE Urine Ketones NEGATIVE Urine Occult Blood LARGE H Urine Nitrite NEGATIVE Urine Bilirubin NEGATIVE Urine Urobilinogen 0.2 (NORMAL) Ur Leukocyte Esterase NEGATIVE Urine RBC 0-5 Urine WBC 0-3 Ur Squamous Epith Cells NONE SEEN Urine Bacteria None Seen Ur Microscopic Review INDICATED Urine Culture Comments NOT INDICATED - Rads (name of study) XR Pelvis Radiology: EMP read contemporaneously (widened pubic symphisis) PD MEDICAL DECISION MAKING - ED course ED course: 25-year-old woman who is a few days with pelvic and back pain. She did not have this with prior pregnancies. Endometritis is considered, but without fever or increased lochia unlikely especially in the setting of a normal ultrasound. No evidence of UTI on urinalysis. She does have significant pubic symphysis diastases which may be causing her symptoms and conservative care, heat and gentle stretching were advised. Departure - Departure Disposition: 01 Home, Self Care Clinical Impression: Diastasis of symphysis pubis during delivery, Abnormality of pelvis affecting period Condition: Good Record reviewed to determine appropriate education?: Yes Instructions: ED Pelvic Pain UKO Comments: Tylenol or ibuprofen as needed for pain. Return if worsening. Follow-up with OB as routine, generally 2 weeks after delivery. Discharge Date/Time: 11/10/20 17:16
[2020-11-10 16:23] LABS: BASOPHILS % (AUTO) 0.4 %; EOSINOPHILS # (AUTO) 0.2 10^3/uL (0.0-0.7); EOSINOPHILS % (AUTO) 2.7 %; HCT - HEMATOCRIT 34.4 % (37.0-47.0); HGB - HEMOGLOBIN 11.3 g/dL (12.0-16.0); LYMPHOCYTES # (AUTO) 1.7 10^3/uL (1.5-3.5); LYMPHOCYTES % (AUTO) 22.2 %; MEAN CORPUSCULAR HEMOGLOBIN 28.8 pg (27.0-31.0); MEAN CORPUSCULAR HGB CONC 32.8 g/dL (32.0-36.0); MEAN CORPUSCULAR VOLUME 87.5 fL (81.0-99.0); MEAN PLATELET VOLUME 9.3 fL (7.9-10.8); MONOCYTES # (AUTO) 0.5 10^3/uL (0.0-1.0); MONOCYTES % (AUTO) 6.6 %; NEUTROPHILS % (AUTO) 67.4 %; PLT - PLATELET COUNT 392 10^3/uL (130-450); RED BLOOD COUNT 3.93 10^6/uL (4.20-5.40); RED CELL DISTRIBUTION WIDTH 13.8 % (12.0-15.0); WHITE BLOOD COUNT 7.4 x10^3/uL (4.8-10.8)
[2020-11-10 16:26] LABS: CALCIUM 8.9 mg/dL (8.5-10.3); CREATININE 0.8 mg/dL (0.4-1.0); POTASSIUM 3.9 mmol/L (3.5-5.0)
--- NOTE | 2020-11-10 16:34 | XRAY Report ---
PROCEDURE: Pelvis 3 View INDICATIONS: PELVIC PAIN. Additional history is gathered by the technologist of increased pelvic charlene n following giving 6 days ago. TECHNIQUE: 3 view(s) of the pelvis acquired. COMPARISON: None. FINDINGS: Bones: There is widening of the symphysis pubis seen, with a gap of 7 mm. No lauren fractures are seen . No suspicious bony lesions. Soft tissues: Visualized bowel gas pattern is normal. No suspicious soft tissue calcifications. IMPRESSION: Widening of the pubic symphysis can be seen. Reviewed by: Bhupinder Mustafa MD on 11/10/2020 3:33 PM JOHN Approved by: Bhupinder Mustafa MD on 11/10/2020 3:33 PM JOHN Station ID: [id number]
[2020-11-10 16:55] LABS: BILIRUBIN,URINE NEGATIVE (NEGATIVE); GLUCOSE, URINE (UA) NEGATIVE (NEGATIVE); KETONES,URINE (UA) NEGATIVE (NEGATIVE); LEUKOCYTE ESTERASE, URINE NEGATIVE (NEGATIVE); NITRITE,URINE NEGATIVE (NEGATIVE); OCCULT BLOOD,URINE LARGE (NEGATIVE); PROTEIN,URINE NEGATIVE (NEGATIVE); UROBILINOGEN,URINE 0.2 (NORMAL) E.U./dL (NORMAL)
[2020-11-10 16:57] LABS: CLARITY,URINE HAZY (CLEAR)
[2020-11-10 17:07] VITALS: BP 131/82
[2020-11-10 17:08] LABS: WBC,URINE 0-3 /HPF (0-5)
--- NOTE | 2020-11-10 17:08 | Ultrasound Report ---
PROCEDURE: Pelvic Complete INDICATIONS: pelvic pain TECHNIQUE: Real-time transabdominal scanning was performed of the pelvic organs, with image documentation. COMPARISON: Correlation is made with the accompanying pelvis plain films, 11/10/2020 FINDINGS: Uterus: Uterus is normal and size and 14.3 x 6 x 13.1 cm. Endometrium measures 10 mm in combined thickness. Complex nonvascular debris can be seen along the endometrial stripe measuring 3. 2 x 0.9 x 2.5 cm Ovaries: The right ovary measures 3.4 x 2.4 x 34.1 cm and the left ovary measures 4.1 x 1.4 x 2.8 cm . No significant ovarian abnormalities are seen. There are less than 12 follicles seen on each side. No adnexal masses are seen. Other: No free pelvic fluid. IMPRESSION: No hypervascular retained products of conception can be seen. There is a small amount of nonvascular hemorrhagic debris seen within the endometrial stripe, which i s considered to be within normal limits post . Normal-appearing uterus. Note: Concordant preliminary findings given by the crisis intervention specialist upon the completion of the examination to Dr. Santana at 4:50 PM on 11/10/2020. Reviewed by: Bhupinder Mustafa MD on 11/10/2020 4:07 PM JOHN Approved by: Bhupinder Mustafa MD on 11/10/2020 4:07 PM JOHN Station ID: [id number]
[2020-11-10 17:09] LABS: BACTERIA,URINE None Seen /HPF (None Seen); RBC,URINE 0-5 /HPF (0-5); SQUAMOUS EPITHELIAL CELL,UR NONE SEEN (<= Few)
== END 2020-11-10 17:16 | disposition home or self-care (01) ==
LOC: ED 15:26
DX: O99.893 Other specified diseases and conditions complicating puerperium (principal); O34.80 Maternal care for other abnormalities of pelvic organs, unspecified trimester; Z87.891 Personal history of nicotine dependence
CPT/HCPCS: 36415; 80048; 81001; 81003; 85025; 87086; 99284

== ENCOUNTER 2021-06-10 12:09 | Emergency (ER) | payer OTHER, MEDICAID ==
[2021-06-10 12:23] VITALS: BP 130/82
[2021-06-10] MEDS ORDERED: BUFFERED LIDOCAINE 10 ML SYRINGE SUBQ STA (12:28)
[2021-06-10] MEDS ORDERED: SILVER NITRATE APPLICATOR TOP STA (12:33)
[2021-06-10] MEDS ORDERED: LIDOCAINE 1% 2 ML VIAL SUBQ STA (12:33)
--- NOTE | 2021-06-10 12:33 | ED Physician Documentation ---
PD HPI LOWER EXT INJURY - Stated complaint Stated Complaint: R FOOT PX - Chief complaint Chief Complaint: Ext Problem - History obtained from History obtained from: Patient (About 6 months ago she dropped a heavy object on her foot and the toenail fell off. 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 : None HEENT: None Psych: None Musculoskeletal: None Derm: None - Past Surgical History Past Surgical History: Yes - Present Medications Home Medications: Ambulatory Orders Medication Instructions Recorded Confirmed Acetaminophen [Acetaminophen Extra 1,000 mg PO Q8H PRN #60 tablet 11/05/20 11/10/20 Strength] Docusate Sodium 100Mg Capsule 100 - 200 mg PO BID PRN #60 cap 11/05/20 11/10/20 [Colace 100Mg Capsule] Ibuprofen [Motrin] 600 mg PO Q6H PRN #60 tab 11/05/20 11/10/20 - Allergies Allergies/Adverse Reactions: Allergies Allergy/AdvReac Type Severity Reaction Status Date / Time Sulfa (Sulfonamide Allergy Hives Verified 06/10/21 12:23 Antibiotics) - Social History Does the pt smoke?: No Smoking Status: Former smoker Does the pt drink ETOH?: No Does the pt have substance abuse?: No - Immunizations Immunizations are current?: Yes PD ED PE NORMAL - Vitals Vital signs reviewed: Yes - General General: Alert and oriented X 3, No acute distress - Extremities Extremities: Other (She has an ingrown toenail of the medial part of the right great toe with some cellulitis) - Neuro Neuro: Alert and oriented X 3, Normal speech Results - Vitals Vitals: Vital Signs - 24 hr 06/10/21 12:22 Temperature 36.5 C Heart Rate 80 Respiratory 16 Rate Blood Pressure 130/82 H O2 Saturation 97 Oxygen O2 Source Room air Procedures - General procedure General procedure: After verbal informed consent the right great toe was blocked using lidocaine in standard fashion and excellent anesthesia was obtained. The lateral fifth of the nail was sharply dissected and pulled off of the nailbed and the nail bed was cauterized with silver nitrate and dressing was placed. Patient tolerated this well. PD MEDICAL DECISION MAKING - ED course ED course: We discussed that antibiotics are routine in this case but she would like to avoid them. Departure - Departure Disposition: 01 Home, Self Care Clinical Impression: Ingrown toenail of right foot Condition: Good Record reviewed to determine appropriate education?: Yes Instructions: ED Ingrown Toenail Excised
== END 2021-06-10 13:02 | disposition home or self-care (01) ==
LOC: ED 12:09
DX: L60.0 Ingrowing nail (principal); Z87.891 Personal history of nicotine dependence
CPT/HCPCS: 11730; 99282; 99283

== ENCOUNTER 2021-07-09 12:31 | Emergency (ER) | payer OTHER, MEDICAID ==
[2021-07-09 13:48] VITALS: BP 120/65
== END 2021-07-09 14:17 | disposition left against medical advice (07) ==
LOC: ED 12:31
DX: Z53.21 Procedure and treatment not carried out due to patient leaving prior to being seen by health care provider (principal)

== ENCOUNTER 2021-11-12 10:05 | Outpatient (CLI) | payer OTHER ==
[2021-11-12] MEDS ORDERED: GADOBUTROL 10 MMOL/10 ML VIAL ONE (10:20)
--- NOTE | 2021-11-12 12:13 | MRI Report ---
PROCEDURE: Brain W/WO INDICATIONS: AUTOIMMUNE THYROIDISM CONTRAST: Gadavist, 9 20 cc TECHNIQUE: Noncontrast sagittal and axial FLAIR, axial gradient echo, axial diffusion and ADC through the brain. Thin-slice sagittal and coronal T1 spin echo, coronal T2 fast spin echo through the pituitary. Aft er the administration contrast, optional dynamic coronal T1 spin echo, thin-slice coronal and sagitta l T1 spin echo images through the pituitary fossa; axial T1 spin echo with fat saturation through the brain. COMPARISON: None. FINDINGS: Image quality: Excellent. Pituitary Gland: The pituitary gland demonstrates normal bulk and normal signal. A normal-appearing posterior pituitary T1 hyperintense bright spot is seen. With administration of contrast, the pituita ry demonstrates normal-appearing, homogeneous contrast enhancement, without hyperenhancing or hypoenh ancing lesions seen within it to suggest pituitary masses. The pituitary stalk is midline and demonst rates no abnormal enhancement. The optic chiasm and the ventral forebrain demonstrate an unremarkable appearance. CSF Spaces: Ventricles are normal in size and shape. Basal cisterns are patent. No extra-axial flu id collections. Brain: No intracranial bleeds or mass effects. No abnormal intracranial enhancement. Moore-white ma tter interface is intact. Diffusion weighted images demonstrate no acute ischemic insults. Brainste m is normal. Normal intravascular flow voids are present. Mildly low-lying cerebellar tonsils are seen, which descend 3 to 4 cm below the level of the foramen magnum. Skull and face: Calvarial marrow is normal in signal. Orbits appear normal. Sinuses: Sinuses and mastoids are clear. IMPRESSION: Normal pituitary, without masses or abnormal enhancement seen to explain the patient's thyroid abnorm alities. Normal-appearing brain, without masses, abnormal enhancement, or infarction. Note is made of mildly low-lying cerebellar tonsils, yet not reaching the definition for Chiari I mal formation. Reviewed by: Bhupinder Mustafa MD on 11/12/2021 11:12 AM JOHN Approved by: Bhupinder Mustafa MD on 11/12/2021 11:12 AM JOHN Station ID: [id number]
[2021-11-12] MEDS ORDERED: GADOBUTROL 10 MMOL/10 ML VIAL IVP ONE (16:45)
== END 2021-11-12 10:06 | disposition home or self-care (01) ==
LOC: DI 10:05
PROVIDERS: ATTEND Nurse Practitioner Family
DX: E06.3 Autoimmune thyroiditis (principal); E03.8 Other specified hypothyroidism
CPT/HCPCS: 70553; A9585

== ENCOUNTER 2023-02-09 08:00 | Outpatient (CLI) | payer OTHER ==
[2023-02-09 17:01] LABS: BILIRUBIN,URINE NEGATIVE (NEGATIVE); GLUCOSE, URINE (UA) NEGATIVE (NEGATIVE); KETONES,URINE (UA) NEGATIVE (NEGATIVE); LEUKOCYTE ESTERASE, URINE TRACE (NEGATIVE); NITRITE,URINE NEGATIVE (NEGATIVE); OCCULT BLOOD,URINE TRACE-INTA (NEGATIVE); PROTEIN,URINE 30 mg/dL (NEGATIVE); UROBILINOGEN,URINE 0.2 (NORMAL) E.U./dL (NORMAL)
[2023-02-09 17:07] LABS: CLARITY,URINE HAZY (CLEAR); RBC,URINE 0-5 /HPF (0-5); WBC,URINE >25 /HPF (0-5)
[2023-02-09 17:08] LABS: BACTERIA,URINE Few /HPF (None Seen); SQUAMOUS EPITHELIAL CELL,UR FEW Squamous (<= Few)
== END 2023-02-09 23:59 | disposition home or self-care (01) ==
LOC: LAB.WC 08:00
PROVIDERS: ATTEND Obstetrics & Gynecology
DX: R30.0 Dysuria (principal)
CPT/HCPCS: 81001; 87077; 87086; 87181

== ENCOUNTER 2023-02-15 14:33 | Outpatient (CLI) | payer OTHER ==
[2023-02-15 18:51] LABS: BILIRUBIN,URINE NEGATIVE (NEGATIVE); GLUCOSE, URINE (UA) NEGATIVE (NEGATIVE); KETONES,URINE (UA) TRACE mg/dL (NEGATIVE); LEUKOCYTE ESTERASE, URINE LARGE (NEGATIVE); NITRITE,URINE POSITIVE (NEGATIVE); OCCULT BLOOD,URINE TRACE-LYSE (NEGATIVE); PH,URINE 6.5 PH (5.0-7.5); PROTEIN,URINE 30 mg/dL (NEGATIVE); UROBILINOGEN,URINE 0.2 (NORMAL) E.U./dL (NORMAL)
[2023-02-15 18:54] LABS: CLARITY,URINE CLOUDY (CLEAR)
[2023-02-15 19:59] LABS: BACTERIA,URINE Many /HPF (None Seen); RBC,URINE 0-5 /HPF (0-5); SQUAMOUS EPITHELIAL CELL,UR NONE SEEN (<= Few); WBC,URINE >25 /HPF (0-5)
[2023-02-15 20:00] LABS: AMORPHOUS SEDIMENT,UR Marked /LPF
== END 2023-02-15 14:34 | disposition home or self-care (01) ==
LOC: LAB.N 14:33
PROVIDERS: ATTEND Obstetrics & Gynecology
DX: R30.0 Dysuria (principal)
CPT/HCPCS: 81001; 87086; 87181

== ENCOUNTER 2023-03-10 08:00 | Outpatient (CLI) | payer OTHER ==
[2023-03-10 16:13] LABS: BILIRUBIN,URINE NEGATIVE (NEGATIVE); GLUCOSE, URINE (UA) NEGATIVE (NEGATIVE); KETONES,URINE (UA) NEGATIVE (NEGATIVE); LEUKOCYTE ESTERASE, URINE TRACE (NEGATIVE); NITRITE,URINE NEGATIVE (NEGATIVE); OCCULT BLOOD,URINE MODERATE (NEGATIVE); PH,URINE 7.5 PH (5.0-7.5); PROTEIN,URINE NEGATIVE (NEGATIVE); UROBILINOGEN,URINE 2 E.U./dL (NORMAL)
[2023-03-10 16:20] LABS: CLARITY,URINE CLOUDY (CLEAR)
[2023-03-10 16:21] LABS: BACTERIA,URINE Moderate /HPF (None Seen); SQUAMOUS EPITHELIAL CELL,UR MANY Squamous (<= Few)
[2023-03-10 21:44] LABS: BACTERIAL VAGINOSIS DNA NEGATIVE (NEGATIVE); CANDIDA GLABRATA DNA NEGATIVE (NEGATIVE); CANDIDA GROUP DNA NEGATIVE (NEGATIVE); CANDIDA KRUSEI DNA NEGATIVE (NEGATIVE); TRICHOMONAS VAGINALIS DNA NEGATIVE (NEGATIVE)
== END 2023-03-10 23:59 | disposition home or self-care (01) ==
LOC: LAB.WC 08:00
PROVIDERS: ATTEND Obstetrics & Gynecology
DX: R30.0 Dysuria (principal); N89.8 Other specified noninflammatory disorders of vagina
CPT/HCPCS: 81001; 81514; 87086

== ENCOUNTER 2023-06-03 09:00 | Outpatient (CLI) | payer OTHER ==
[2023-06-03 12:33] LABS: H. PYLORIS ANTIGEN STL NEGATIVE (Negative)
== END 2023-06-03 09:15 | disposition home or self-care (01) ==
LOC: LAB.N 09:00
PROVIDERS: ATTEND Family Medicine
DX: K27.9 Peptic ulcer, site unspecified, unspecified as acute or chronic, without hemorrhage or perforation (principal)
CPT/HCPCS: 87338